=== PATIENT | male | born 2000 | race African-American/Black ===

== ENCOUNTER 2020-10-05 20:22 | Emergency (ER) | payer OTHER ==
[2020-10-05] MEDS ORDERED: HYDROCODONE/APAP 7.5/325 MG TAB ONE (20:53)
--- NOTE | 2020-10-05 21:16 | EDPHYS ---
Physician Documentation [facility] Name: Darron Rice Age: 20 yrs Sex: Male : 2000 Arrival Date: 10/05/2020 Time: 20:24 Bed 7 Private MD: ED Physician Thee Alvarado HPI: 10/05 20:49 This 20 yrs old Male presents to ER via Unassigned with complaints of wrist pain. kb 20:49 The patient or guardian reports decreased range of motion, deformity, injury, pain, kb swelling, tenderness. The complaints affect the right wrist diffusely. Context: The problem was sustained at a [facility], resulted from using own fist to strike, a wall. Onset: The symptoms/episode began/occurred today. Modifying factors: The symptoms are alleviated by nothing, the symptoms are aggravated by movement. Associated signs and symptoms: The patient has no apparent associated signs or symptoms. The patient has not experienced similar symptoms in the past. The patient has not recently seen a physician. Historical: - Allergies: 21:06 No Known Allergies; mg2 - Home Meds: 21:06 None [Active]; mg2 - PMHx: 21:06 Asthma; mg2 - PSHx: 21:06 None; mg2 - Immunization history:: Flu vaccine status is unknown. - Social history:: Smoking status: unknown. ROS: 20:48 Constitutional: Negative for fever, chills, and weight loss, Skin: Negative for injury, kb rash, and discoloration, Neuro: Negative for headache, weakness, numbness, tingling, and seizure. 20:48 MS/extremity: Positive for injury or acute deformity, decreased range of motion, pain, swelling, tenderness, of the right hand and right forearm. Exam: 20:48 Constitutional: This is a well developed, well nourished patient who is awake, alert, kb and in no acute distress. Head/Face: Normocephalic, atraumatic. Skin: Warm, dry with normal turgor. Normal color. Neuro: Awake and alert, GCS 15, oriented to person, place, time, and situation. Moves all extremities. Normal gait. 20:48 Musculoskeletal/extremity: Extremities: grossly normal except: noted in the right forearm and right hand: decreased ROM, deformity, pain, swelling, tenderness, ROM: limited active range of motion, in the right wrist and right hand, Circulation is intact in all extremities. Sensation intact. Vital Signs: 21:03 BP 144 / 89; Pulse 75; Resp 18; Temp 98; Pulse Ox 100% on R/A; Height 6 ft. 2 in. mg2 (187.96 cm); 21:55 BP 123 / 78; Pulse 80; Resp 18; Temp 98; Pulse Ox 100% on R/A; mg2 MDM: 20:29 Patient medically screened. kb 20:47 Data reviewed: vital signs, nurses notes. Data interpreted: Pulse oximetry: on room air kb is 100 %. Interpretation: normal. Counseling: I had a detailed discussion with the patient and/or guardian regarding: the historical points, exam findings, and any diagnostic results supporting the discharge/admit diagnosis, radiology results, the need for outpatient follow up, a orthopedic surgeon, to return to the emergency department if symptoms worsen or persist or if there are any questions or concerns that arise at home. 10/05 20:33 Order name: Forearm Right XRAY kb 10/05 20:33 Order name: Hand Right 3 View XRAY kb 10/05 21:23 Order name: RAD EDWV 10/05 21:24 Order name: RAD EDWV 10/05 21:14 Order name: Sugar Tong Forearm Splint; Complete Time: 21:55 kb Administered Medications: 20:38 Drug: [place] (HYDROcodone-acetaminophen) (7.5 mg-325 mg) 1 tabs Route: PO; mg2 21:22 Follow up: Response: No adverse reaction mg2 21:40 Drug: TORadol (ketorolac) 60 mg Route: IM; Site: left deltoid; mg2 21:55 Follow up: Response: No adverse reaction mg2 Disposition: 10/06 04:47 Co-signature as Attending Physician, Thee Alvarado MD. rn Disposition: 10/05/20 21:15 Discharged to Law Enforcement. Impression: displaced fracture of distal radius. - Condition is Stable. - Discharge Instructions: Forearm Fracture, [id number]. - Medication Reconciliation Form, Thank You Letter, Antibiotic Education, Prescription Opioid Use form. - Follow up: Emergency Department; When: As needed; Reason: Worsening of condition. Follow up: Private Physician; When: 2 - 3 days; Reason: Recheck today's complaints, Continuance of care, Re-evaluation by your physician. Signatures: Dispatcher [employer] ADRIANA Reina Ayla, ROAD MIXER OPERATOR-C ROAD MIXER OPERATOR-Ckb Thee Alvarado MD MD rn Gardose, Michele, RN RN mg2 Corrections: (The following items were deleted from the chart) 10/05 21:56 21:15 10/05/2020 21:15 Discharged to Law Enforcement. Impression: displaced fracture of mg2 distal radius. Condition is Stable. Forms are Medication Reconciliation Form, Thank You Letter, Antibiotic Education, Prescription Opioid Use. Follow up: Emergency Department; When: As needed; Reason: Worsening of condition. Follow up: Private Physician; When: 2 - 3 days; Reason: Recheck today's complaints, Continuance of care, Re-evaluation by your physician. kb
--- NOTE | 2020-10-05 21:16 | ER ---
Nurse's Notes [facility] Name: Darron Rice Age: 20 yrs Sex: Male : 2000 Arrival Date: 10/05/2020 Time: 20:24 Bed 7 Private MD: Diagnosis: displaced fracture of distal radius Presentation: 10/05 21:03 Chief complaint: Patient states: i punched the wall tonight and I sustained injury in mg2 my right wrist. Coronavirus screen: Client denies travel out of the [place] in the last 14 days. At this time, the client does not indicate any symptoms associated with coronavirus-19. Ebola Screen: No symptoms or risks identified at this time. Initial Sepsis Screen: Does the patient meet any 2 criteria? No. Patient's initial sepsis screen is negative. Does the patient have a suspected source of infection? No. Patient's initial sepsis screen is negative. Risk Assessment: Do you want to hurt yourself or someone else? Patient reports no desire to harm self or others. Onset of symptoms was October 05, 2020. 21:03 Method Of Arrival: [facility] Enforcement [facility] 21:03 Acuity: MALINDA 3 mg2 Triage Assessment: 21:05 General: Appears in no apparent distress. comfortable, Behavior is calm, cooperative. mg2 Pain: Complains of pain in right wrist. EENT: No signs and/or symptoms were reported regarding the EENT system. Neuro: Level of Consciousness is awake, alert, obeys commands, Oriented to person, place, time, situation. Cardiovascular: Capillary refill < 3 seconds Patient's skin is warm and dry. Respiratory: Airway is patent Respiratory effort is even, unlabored, Respiratory pattern is regular, symmetrical. GI: No signs and/or symptoms were reported involving the gastrointestinal system. : No signs and/or symptoms were reported regarding the genitourinary system. Derm: Skin is intact, is healthy with good turgor, Skin is pink, warm \T\ dry. normal. Musculoskeletal: Circulation, motion, and sensation intact. Capillary refill < 3 seconds, Swelling present in right wrist. Historical: - Allergies: 21:06 No Known Allergies; mg2 - Home Meds: 21:06 None [Active]; mg2 - PMHx: 21:06 Asthma; mg2 - PSHx: 21:06 None; mg2 - Immunization history:: Flu vaccine status is unknown. - Social history:: Smoking status: unknown. Screenin:06 Abuse screen: Denies threats or abuse. Denies injuries from another. Nutritional mg2 screening: No deficits noted. Tuberculosis screening: No symptoms or risk factors identified. Fall Risk None identified. Assessment: 21:06 General: see triage asessment. mg2 Vital Signs: 21:03 BP 144 / 89; Pulse 75; Resp 18; Temp 98; Pulse Ox 100% on R/A; Height 6 ft. 2 in. mg2 (187.96 cm); 21:55 BP 123 / 78; Pulse 80; Resp 18; Temp 98; Pulse Ox 100% on R/A; mg2 ED Course: 20:24 Patient arrived in ED. cf2 20:29 Ayla Reina [facility]C [facility] kb 20:29 Thee Alvarado MD is Attending Physician. kb 20:33 Max Benites, AUDREY is Primary Nurse. mg2 21:05 Triage completed. mg2 21:06 Patient has correct armband on for positive identification. mg2 21:06 Arm band placed on. mg2 21:40 No provider procedures requiring assistance completed. Patient did not have IV access mg2 during this emergency room visit. 21:54 Orthoglass splint: Sugar tong splint applied on right arm. oe 23:53 authorization #[id number]. mw2 Administered Medications: 20:38 Drug: [place] (HYDROcodone-acetaminophen) (7.5 mg-325 mg) 1 tabs Route: PO; mg2 21:22 Follow up: Response: No adverse reaction mg2 21:40 Drug: TORadol (ketorolac) 60 mg Route: IM; Site: left deltoid; mg2 21:55 Follow up: Response: No adverse reaction mg2 Outcome: 21:15 Discharge ordered by . kb 21:55 Discharged to Law Enforcement mg2 21:55 Condition: stable 21:55 Discharge instructions given to patient, Instructed on discharge instructions, follow up and referral plans. Demonstrated understanding of instructions, follow-up care, splint care. 21:56 Patient left the ED. mg2 Signatures: Ayla Reina FNP-C [employer]AK[employer] TEAM MEMBER-Jamesb Pedrito Wilson oe Milton Candelario mw2 Max Bneites, RN RN mg2 Diane Miller cf2
--- NOTE | 2020-10-05 21:23 | RAD REPORT ---
EXAM DESCRIPTION: RAD - Forearm Right - 10/05/2020 9:13 pm CLINICAL HISTORY: Right arm pain status post fall FINDINGS: Comminuted, impacted, moderately to markedly displaced fracture of the distal radius. Avulsion fracture ulnar styloid process.
--- NOTE | 2020-10-05 21:23 | RAD REPORT ---
EXAM DESCRIPTION: RAD - Hand Right 3 View - 10/05/2020 9:13 pm CLINICAL HISTORY: Right hand pain status post injury FINDINGS: Comminuted, impacted, moderately to markedly displaced fracture of the distal radius. Avulsion fracture ulnar styloid process. No dislocation
[2020-10-05] MEDS ORDERED: KETOROLAC 30 MG/ML INJ ONE (21:44)
[2020-10-05 22:01] VITALS: TEMP 98; O2SAT 100
[2020-10-05 22:04] VITALS: BP 123/78
== END 2020-10-05 21:56 ==
LOC: ER 20:22
PROC: 2W3CX1Z Immobilization of Right Lower Arm using Splint (ICD-10-PCS; principal; 2020-10-05)
DX: S52.501A Unspecified fracture of the lower end of right radius, initial encounter for closed fracture (principal); W22.8XXA Striking against or struck by other objects, initial encounter; Y93.89 Activity, other specified; Y92.149 Unspecified place in prison as the place of occurrence of the external cause
CPT/HCPCS: 96372; 99283